=== PATIENT | female | born 1975 | race Caucasian/White ===

== ENCOUNTER → 2021-03-11 | Outpatient (CLI) | payer OTHER ==
[~2021-03-11] MED LIST: BYSTOLIC 5 MG5 MG PO; DILAUDID2 M1 PO; FLAGYL500 MG PO; FLUZONE 2045 MCG/011; KEFLEX500 MG PO; PNEUMOVAX25 MCG/0.5; PROZAC 20 MG20 M1 PO; XANAX 0.25 MG0.25 MG PO
--- NOTE | 2021-03-15 15:53 | TST ---
[place] [address] [employer] STRESS TEST Name: GUANAKITO TRUJILLO Room: [facility]#: [id number] Admission: 03/11/21 Attend Phys: Ange Arceo Discharge: Date of : 75 Date of Service: 03/11/21 1555 Report #: [id number] THIS REPORT FOR: cc: Ange Arceo NP, Michelle NP Liston, Michael J. MD [facility] ~ cc: Ange Arceo NP DATE OF SERVICE: 03/11/2021 CARDIAC PROCEDURE PROCEDURE: Standard Etienne protocol exercise stress test. INDICATION: Chest pain and dyspnea on exertion. CARDIAC HISTORY: None. CARDIAC RISK FACTORS: Dyslipidemia and tobacco use. CARDIAC MEDICATIONS: Lisinopril/hydrochlorothiazide. The patient exercised for 7 minutes on the standard Etienne protocol achieving 91% of her maximum predicted heart rate and an energy expenditure equivalent to 8.56 METS. The resting heart rate was 79 beats per minute with a resting blood pressure 116/82 mmHg. At peak stress, the heart rate was 160 beats per minute with a peak stress blood pressure of 216/89. Recovery heart rate was 94 beats per minute with a recovery blood pressure of 175/83. Exercise was discontinued due to fatigue and attainment of target heart rate. The baseline 12-lead EKG shows sinus rhythm without significant ST segment or T-wave abnormality. EKGs obtained during and post-exercise show sinus rhythm and sinus tachycardia with 0.5 mm of horizontal to upsloping ST segment depression in the inferolateral leads that resolved within 5 minutes of recovery. IMPRESSION: 1. Clinical response, nonischemic. 2. EKG response, subtle ST segment depression noted does not meet diagnostic criteria for inducible ischemia. This is felt to be a [place] [address] [employer] STRESS TEST Name: TRUJILLO,GUANAKITO Helm Room: [facility]#: [id number] Admission: 03/11/21 Attend Phys: Agne Arceo Discharge: Date of : 75 Date of Service: 03/11/21 1555 Report #: [id number] CONCLUSION: This standard Etienne protocol stress test shows no evidence to suggest stress-induced ischemia. <ELECTRONICALLY SIGNED> By: Demarco Delatorre MD, FACC 03/15/21 1553 1555 [id number] Demarco Delatorre MD, FACC /nt
== END ==
LOC: M.RAD 02-16 10:38
PROVIDERS: ATTEND Nurse Practitioner Family
DX: Z12.31 Encounter for screening mammogram for malignant neoplasm of breast (principal)

== ENCOUNTER → 2021-03-11 | Outpatient (CLI) | payer OTHER | LOC: M.CT 13:41 | PROVIDERS: ATTEND Nurse Practitioner Family | DX: Z13.6 Encounter for screening for cardiovascular disorders (principal); R42 Dizziness and giddiness; R07.9 Chest pain, unspecified; R06.09 Other forms of dyspnea; R78.5 Finding of other psychotropic drug in blood; Z72.0 Tobacco use; Z79.899 Other long term (current) drug therapy ==

== ENCOUNTER → 2021-03-18 | Outpatient (CLI) | payer OTHER | LOC: M.ULTRA 03-17 10:30 | PROVIDERS: ATTEND Nurse Practitioner Family | DX: N63.10 Unspecified lump in the right breast, unspecified quadrant (principal) ==